=== PATIENT | female | born 1970 | race African-American/Black ===

== ENCOUNTER 2019-04-11 23:21 | Emergency (ER) | payer OTHER ==
[~2019-04-11] VITALS: Ht 165.1 cm; Wt 81.2 kg
[2019-04-11 23:26] VITALS: Ht 165.1 cm; Wt 81.2 kg
[2019-04-12 02:03] VITALS: BP 174/91
== END 2019-04-12 02:03 | disposition home or self-care (01) ==
LOC: ED 23:21
DX: Z48.01 Encounter for change or removal of surgical wound dressing (principal)